=== PATIENT | female | born 1980 | race Caucasian/White ===

== ENCOUNTER 2016-08-31 11:32 | Outpatient (CLI) | payer BC ==
[~2016-08-31] VITALS: Ht 152.4 cm; Wt 78.1 kg
[2016-08-31] MEDS ORDERED: PRENAT PO (11:35)
[2016-08-31 11:36] VITALS: Ht 152.4 cm; Wt 78.1 kg
[2016-08-31 11:49] VITALS: BP 113/55; PULSE 94; RESP 19
--- NOTE | 2016-08-31 12:48 | RADRPT ---
PROCEDURE: US OB biophysical profile. CLINICAL INDICATION: decreased movements, pain TECHNIQUE: Multiple sonographic images of the pelvis were obtained. The images were reviewed on a PACS workstation. COMPARISON: No prior studies are available for comparison. FINDINGS: There is a single viable intrauterine gestation. Cardiac activity is present with 140 beats per min mehdi. There is a vertex presentation. The placenta is anterior. There is no evidence of placental abruption. There is a normal amount of amniotic fluid with an JACINTA = 9.4 cm. Biophysical profile: movement 2/2 tone 2/2. breathing 2/2 JACINTA 2/2 Total 03/21 RPTAT: AA . IMPRESSION: Normal biophysical profile. . .Red Fung MD, MD Date Time Electronically viewed and signed by .Red Fung MD, MD on 08/31/2016 12:48 .S/
--- NOTE | 2016-08-31 12:50 | RADRPT ---
PROCEDURE: US OB. CLINICAL INDICATION: Size and dates TECHNIQUE: Multiple sonographic images of the pelvis and gravid uterus were obtained. The images were reviewed on a PACS workstation. COMPARISON: No prior studies are available for comparison. FINDINGS: There is a single viable intrauterine gestation. Cardiac activity is present with 148 beats per min mehdi. There is a vertex presentation. The placenta is anterior. There is no evidence of placental abruption. There is a normal amount of amniotic fluid with an JACINTA = 9.4 cm. Measurements were made in order to determine age. The results are as follows: BPD =9.3 cm HC =33.8 cm AC =34.2 cm FL =7.1 cm Estimated gestational age of approximately 37 weeks and 6 days based on ultrasound measurements. Clinical age: 37 weeks and 4 days. The estimated date of delivery is 09/15/16, based on ultrasound measurements. The EFW = 3301 g, 64.9%, based on LMP age. RPTAT: AA IMPRESSION: Single viable intrauterine gestation of approximately 37 weeks and 6 days based on ultrasound measu rements. .Red Fung MD, Date Time Electronically viewed and signed by .Rde Fung MD, on 08/31/2016 12:50 .S/
== END 2016-08-31 13:26 | disposition home or self-care (01) ==
LOC: L-D 11:32 → OBT 11:32
PROVIDERS: ATTEND Obstetrics & Gynecology
DX: O9A.213 Injury, poisoning and certain other consequences of external causes complicating pregnancy, third trimester (principal); S39.91XA Unspecified injury of abdomen, initial encounter; Z3A.37 37 weeks gestation of pregnancy; X58.XXXA Exposure to other specified factors, initial encounter; O36.8130 Decreased fetal movements, third trimester, not applicable or unspecified
CPT/HCPCS: 76815; 76818; Z7500; G0463

== ENCOUNTER 2016-09-09 13:34 | Outpatient (CLI) | payer BC ==
--- NOTE | 2016-08-31 18:10 | QN ---
Documentation Comment 36 years old with at 37 weeks and 4/7 was seen today in the office for OBV. Patient told she ran in to a pump and hit her abdomen from the side 4 days ago. Denies any fall, Denies any LOF, vaginal bleeding or contractions. she was sent today to L&D for evaluation. Patient currently denies any pain and has not complaint. GA: A*O, NAD Abdomen: Soft, non tender, no rebound tenderness, gravid Fundal height correlate with GA. Extremities: no calf tenderness, no click, no edema PROCEDURE: US OB. CLINICAL INDICATION: Size and dates TECHNIQUE: Multiple sonographic images of the pelvis and gravid uterus were obtained. The images were reviewed on a PACS workstation. COMPARISON: No prior studies are available for comparison. FINDINGS: There is a single viable intrauterine gestation. Cardiac activity is present with 148 beats per minute. There is a vertex presentation. The placenta is anterior. There is no evidence of placental abruption. There is a normal amount of amniotic fluid with an JACINTA = 9.4 cm. Measurements were made in order to determine age. The results are as follows: BPD = 9.3 cm HC = 33.8 cm AC = 34.2 cm FL = 7.1 cm Estimated gestational age of approximately 37 weeks and 6 days based on ultrasound measurements. Clinical age: 37 weeks and 4 days. The estimated date of delivery is 09/15/16, based on ultrasound measurements. The EFW = 3301 g, 64.9%, based on LMP age. RPTAT: AA IMPRESSION: Single viable intrauterine gestation of approximately 37 weeks and 6 days based on ultrasound measurements. No evidence of abruption. Assessment: IUP at 37 weeks and 4 days S/p minor trauma 3 days ago No evidence of abruption NST category 1 adequate amniotic fluid, No evidence of labor Plan DC home Strict labor precautions and kick counts and follow with her OB in the next 2-3 days recommended Patient verbalized understanding. JESSICA SWAN MD Aug 31, 2016 18:07
[~2016-09-09] VITALS: Ht 152.4 cm; Wt 79.2 kg
[~2016-09-09 13:34] MED LIST: PRENAT PO
[2016-09-09] MEDS ORDERED: FERR325C PO (13:59)
[2016-09-09 14:00] VITALS: Ht 152.4 cm; Wt 79.2 kg
[2016-09-09 14:01] VITALS: BP 116/62; PULSE 89; RESP 18
--- NOTE | 2016-09-09 14:44 | RADRPT ---
PROCEDURE: OB ultrasound for biophysical profile CLINICAL INDICATION: Decreased motion. Biophysical profile. . TECHNIQUE: Multiple sonographic images of the pelvis were obtained. Transabdominal view of the gr avid uterus are available for review. The images were reviewed on a PACS workstation. COMPARISON: 08/31/2016 FINDINGS: breathing movement = 2/2 tone = 2/2 motion = 2/2 JACINTA = 2/2 Single intrauterine gestation is identified in cephalic position. heart rate is 144 bpm. Plac enta is anterior without evidence for abruption or previa. JACINTA measures 14.5 cm, within normal limi ts. IMPRESSION: 1. Single live intrauterine gestation. 2. Biophysical profile = 8/8. 3. JACINTA = 14.5 cm. RPTAT: TT .Jeremi Crain MD, Date Time Electronically viewed and signed by .Jeremi Crain MD, on 09/09/2016 14:44 .R/
--- NOTE | 2016-09-09 14:58 | RADRPT ---
PROCEDURE: US OB. CLINICAL INDICATION: Decreased motion TECHNIQUE: Multiple sonographic images of the pelvis were obtained. Transabdominal imaging only w as performed. The images were reviewed on a PACS workstation. COMPARISON: 08/31/2016 FINDINGS: Single intrauterine gestation. Cephalic presentation. heart rate is 142 bpm. Measurements were made in order to determine age. The results are as follows: BPD = 9.71 cm HC = 34.62 cm AC = 34.92 cm FL = 7.48 cm Gestational age is 39 weeks 2 days and ZACKARY is 09/14/2016 by ultrasound criteria. Gestational age is 38 weeks 6 days and ZACKARY is 09/17/2016 by LMP. EFW = 3644 g +/- 547 g (71 %). The placenta is anterior. There is no evidence for an abruption or placenta previa. IMPRESSION: 1. Single live intrauterine gestation of approximately 39 weeks 2 days by ultrasound criteria. RPTAT: TT .Jeremi Crain MD, MD Date Time Electronically viewed and signed by .Jeremi Crain MD, on 09/09/2016 14:58 .R/
--- NOTE | 2016-09-09 16:23 | PN ---
DATE: 09/09/2016 The patient is a 36-year-old at 38 and 1/2 weeks with occasional movement. Exam within normal limits. Ultrasound within normal limits. elevate. Patient with gestational movement and the patient will be discharged home. Follow up on Monday for NST. Dictated By: SALVADOR CONTRERAS MD /NTS Conf#: [id number] DID#: [id number]
== END 2016-09-09 15:29 | disposition home or self-care (01) ==
LOC: OBT 13:34 → L-D 13:35 → OBT 15:29
PROVIDERS: ATTEND Obstetrics & Gynecology
DX: O9A.213 Injury, poisoning and certain other consequences of external causes complicating pregnancy, third trimester (principal); S39.91XA Unspecified injury of abdomen, initial encounter; O36.8130 Decreased fetal movements, third trimester, not applicable or unspecified; O09.523 Supervision of elderly multigravida, third trimester; Z3A.37 37 weeks gestation of pregnancy; W22.8XXA Striking against or struck by other objects, initial encounter
CPT/HCPCS: 76815; 76818; Z7500; G0463

== ENCOUNTER 2016-09-10 17:04 | Inpatient (IN) | payer BC ==
[~2016-09-10] VITALS: Ht 154.9 cm; Wt 79.3 kg
[~2016-09-10 17:04] MED LIST changes: +FERR325C PO
[2016-09-10 17:41] VITALS: Ht 154.9 cm; Wt 79.3 kg
[2016-09-10 17:52] VITALS: BP 117/57; PULSE 105; RESP 19
[2016-09-10] MEDS: LACTATED RINGER'S 1,000 ML IV SCH (17:55)
[2016-09-10] MEDS ORDERED: OXYTOCIN 30 UNITS/LR 500 ML IV SCH ×2 (18:00)
[2016-09-10] MEDS ORDERED: CARBOPROST 250 MCG INJ IM PRN (18:00)
[2016-09-10] MEDS ORDERED: MISOPROSTOL 200 MCG TAB PR PRN (18:00)
[2016-09-10] MEDS ORDERED: ACETAMINOPHEN/CODEINE #3 TAB PO PRN (18:00)
[2016-09-10] MEDS ORDERED: LIDOCAINE 1% (MPF) 30 ML INJ INJ PRN (18:00)
[2016-09-10] MEDS ORDERED: OXYTOCIN 30 UNITS/LR 500 ML IV PRN (18:00)
[2016-09-10] MEDS ORDERED: BUTORPHANOL 2 MG INJ IV PRN ×2 (18:00)
[2016-09-10] MEDS ORDERED: IBUPROFEN 600 MG TAB PO PRN (18:00)
[2016-09-10] MEDS ORDERED: METHYLERGONOVINE 0.2 MG INJ IM PRN (18:00)
[2016-09-10 18:10] LABS: BASOPHILS % 0.2 % (0.0-2.0); EOSINOPHILS # 0.1 10^3/ul (0.0-0.5); HEMATOCRIT 33.6 % (37.0-47.0); HEMOGLOBIN 11.6 g/dl (12.0-16.0); LYMPHOCYTES # 1.4 10^3/ul (0.8-2.9); LYMPHOCYTES % 13.4 % (15.0-51.0); MEAN CORPUSCULAR HEMOGLOBIN 28.7 pg (29.0-33.0); MEAN CORPUSCULAR HGB CONC 34.5 g/dl (32.0-37.0); MEAN CORPUSCULAR VOLUME 83.2 fl (82.0-101.0); MEAN PLATELET VOLUME 8.3 fl (7.4-10.4); MONOCYTE # 0.7 10^3/ul (0.3-0.9); MONOCYTES % 6.7 % (0.0-11.0); NEUTROPHIL # 8.5 10^3/ul (1.6-7.5); NEUTROPHILS % 78.7 % (39.0-77.0); PLATELET COUNT 277 10^3/UL (140-440); RED BLOOD COUNT 4.04 10^6/ul (4.20-5.40); UNCORRECTED WBC 10.8 10^3/ul (4.8-10.8); WHITE BLOOD COUNT 10.8 10^3/ul (4.8-10.8)
[2016-09-10 18:16] LABS: CONDITION 1
[2016-09-10 18:17] LABS: LH ANALYZER COMMENTS 1
[2016-09-10 18:19] LABS: INR 0.92; PROTIME 12.4 Sec (12.2-14.2)
[2016-09-10 18:20] LABS: PARTIAL THROMBOPLASTIN TIME 25.2 Sec (25.0-35.0)
--- NOTE | 2016-09-10 18:27 | TRIAGE ---
OB Triage Datetime Report Generated by CPN: 09/10/2016 18:26 Datetime: 09/10/2016 17:45 Stage of : Labor Assessment Type: Admission Assessment Vaginal Bleeding: None Maternal Assessment Level of Consciousness: Fully Conscious DTR's/Clonus: DTRs 2+; No Clonus Headache: Denies Blurred Vision: No Respiratory Effort: Unlabored; Regular Rhythm; Equal Expansion Breath Sounds, Left: Clear and Equal Breath Sounds, Right: Clear and Equal Nausea/Vomiting: Denies RUQ Epigastric Pain: Denies Lower Extremities Edema: None Upper Extremities Edema: None Facial Edema: None Fall Risk Assessment History of Falling: (0) No Secondary Diagnosis: (0) No Ambulatory Aid: (0) Bedrest/Nurse Assist IV Therapy: (20) Yes Gait: (0) Normal/Bedrest/Immobile Mental Status: (0) Oriented to Own Ability Fall Score: 20 Fall Risk Score Definition: No Risk: No action required Labor Evaluation Frequency: 5-7 Duration (sec)2399: 90-110 Quality: Strong Pattern: Normal: <= 5 Contractions in 10 Minutes Resting Tone [place]: Relaxed Heart Rate FHR Baseline Rate: 145 Variability: Moderate 6-25 bpm Accelerations: 15X15 Decelerations: None Category: Category I Pain Assessment Pain Scale: 8 Pain Presence: Intermittent Pain Type: Contraction Pain Location: Abdomen Pain Goal: 3 Membrane Status: Bulging Datetime: 09/10/2016 17:38 Stage of : OB Triage Datetime: 09/10/2016 17:36 Stage of : OB Triage Datetime: 09/10/2016 17:30 Stage of : OB Triage Assessment Type: Triage Labor Evaluation Frequency: 7 Monitor Mode: External Duration (sec)2399: 80-90 Quality: Strong Pattern: Normal: <= 5 Contractions in 10 Minutes Heart Rate FHR Baseline Rate: 145 Monitor Mode: External US Variability: Moderate 6-25 bpm Accelerations: 15X15 Decelerations: None Category: Category I Pain Assessment Pain Scale: 8 Pain Presence: Intermittent Pain Type: Contraction Pain Location: Abdomen Pain Goal: 3 Datetime: 09/10/2016 17:25 Labor Evaluation Frequency: 7 Monitor Mode: External Duration (sec)2399: 90-110 Quality: Strong Pattern: Normal: <= 5 Contractions in 10 Minutes Resting Tone [place]: Relaxed Heart Rate FHR Baseline Rate: 145 Monitor Mode: External US Variability: Moderate 6-25 bpm Accelerations: 15X15 Decelerations: None Category: Category I Pain Assessment Pain Scale: 8 Pain Presence: Intermittent Pain Type: Contraction Pain Location: Abdomen Datetime: 09/10/2016 17:19 Vaginal Exam Dilatation (cms): 3.0 Effacement (%): 100 Station: -3 Exam By: KATIA T. Membrane Status: Bulging Presentation 'A': Cephalic Datetime: 09/10/2016 17:15 Assessment Type: Triage Maternal Assessment Level of Consciousness: Fully Conscious DTR's/Clonus: DTRs 2+; No Clonus Headache: Denies Blurred Vision: No Respiratory Effort: Unlabored; Regular Rhythm; Equal Expansion Breath Sounds, Left: Clear and Equal Breath Sounds, Right: Clear and Equal Nausea/Vomiting: Denies RUQ Epigastric Pain: Denies Lower Extremities Edema: None Upper Extremities Edema: None Facial Edema: None Fall Risk Assessment History of Falling: (0) No Secondary Diagnosis: (0) No Ambulatory Aid: (0) Bedrest/Nurse Assist IV Therapy: (0) No Gait: (0) Normal/Bedrest/Immobile Mental Status: (0) Oriented to Own Ability Fall Score: 0 Fall Risk Score Definition: No Risk: No action required Datetime: 09/10/2016 17:10 Time of Arrival: 09/10/2016 17:40 EGA: 39.0 Arrived By: Ambulatory Arrived From: Home Chief Complaint: UC SINCE 529 Movement: Present Contractions: Regular Time Contractions Began: 09/10/2016 05:30 Contractions: 7 Rupture of Membranes: Denies Vaginal Bleeding: None Vaginal Discharge: Denies Recent Sexual Intercouse: Denies Abdominal Trauma: Not Applicable Patient Complaints: Contractions Time Provider Notified: 09/10/2016 17:38 Provider Notified: DELSHAD Initial Plan: HEART MONITORING, UTERINE MONITORING, VS MONITORING, SVE Datetime: 09/09/2016 15:21 Movement: Present Datetime: 09/09/2016 14:59 Vaginal Exam Dilatation (cms): 1.0 Effacement (%): 50 Station: -3 Exam By: Sandra BLAKE Datetime: 09/09/2016 14:23 Time of Arrival: 09/09/2016 13:30 EGA: 38.6 Arrived By: Ambulatory Arrived From: Office Chief Complaint: DFM Movement: Decreased Contractions: Denies/Absent Rupture of Membranes: Denies Vaginal Bleeding: None Vaginal Discharge: Denies Recent Sexual Intercouse: Denies Abdominal Trauma: Not Applicable Patient Complaints: Other Time Provider Notified: 09/09/2016 15:04 Provider Notified: DR MULTANI Initial Plan: NST, EFW AND BPP Datetime: 09/09/2016 14:17 Labor Evaluation Frequency: OCCAS Monitor Mode: External Duration (sec)2399: 150-180 Quality: Mild Pattern: Normal: <= 5 Contractions in 10 Minutes Resting Tone [place]: Relaxed Heart Rate FHR Baseline Rate: 140 Monitor Mode: External US Variability: Moderate 6-25 bpm Accelerations: 15X15 Decelerations: None Category: Category I Datetime: 09/09/2016 14:00 Assessment Type: Admission Assessment Maternal Assessment Level of Consciousness: Fully Conscious DTR's/Clonus: DTRs 2+; No Clonus Headache: Denies Blurred Vision: No Respiratory Effort: Unlabored; Regular Rhythm; Equal Expansion Breath Sounds, Left: Clear and Equal Breath Sounds, Right: Clear and Equal Nausea/Vomiting: Denies RUQ Epigastric Pain: Denies Lower Extremities Edema: None Degree: None Upper Extremities Edema: None Degree: None Facial Edema: None Fall Risk Assessment History of Falling: (0) No Secondary Diagnosis: (0) No Ambulatory Aid: (0) Bedrest/Nurse Assist IV Therapy: (0) No Gait: (0) Normal/Bedrest/Immobile Mental Status: (0) Oriented to Own Ability Fall Score: 0 Fall Risk Score Definition: No Risk: No action required Datetime: 08/31/2016 13:20 Maternal Assessment Level of Consciousness: Fully Conscious DTR's/Clonus: DTRs 1+ Headache: Denies Breath Sounds, Left: Clear and Equal Nausea/Vomiting: Denies RUQ Epigastric Pain: Denies Monitor Mode: External Resting Tone [place]: Relaxed Heart Rate FHR Baseline Rate: 130 Monitor Mode: External US Variability: Moderate 6-25 bpm Accelerations: 15X15 Decelerations: None Category: Category I Pain Assessment Pain Scale: 0 Pain Presence: None/Denies Pain Type: N/A Pain Goal: 3 Membrane Status: Intact Datetime: 08/31/2016 12:30 Stage of : OB Triage Maternal Assessment Level of Consciousness: Fully Conscious DTR's/Clonus: DTRs 1+ Headache: Denies Breath Sounds, Left: Clear and Equal Nausea/Vomiting: Denies RUQ Epigastric Pain: Denies Labor Evaluation Frequency: NONE Monitor Mode: External Resting Tone [place]: Relaxed Heart Rate FHR Baseline Rate: 130 Monitor Mode: External US Variability: Moderate 6-25 bpm Accelerations: 15X15 Decelerations: None Category: Category I Pain Assessment Pain Scale: 0 Pain Presence: None/Denies Pain Type: N/A Pain Goal: 3 Membrane Status: Intact Datetime: 08/31/2016 11:50 Maternal Assessment Level of Consciousness: Fully Conscious DTR's/Clonus: DTRs 1+ Headache: Denies Blurred Vision: No Breath Sounds, Left: Clear and Equal Nausea/Vomiting: Denies RUQ Epigastric Pain: Denies Facial Edema: None Labor Evaluation Frequency: IRREGULAR Monitor Mode: External Duration (sec)2399: 40-50 Quality: Mild Pattern: Normal: <= 5 Contractions in 10 Minutes Resting Tone [place]: Relaxed Heart Rate FHR Baseline Rate: 130 Monitor Mode: External US Variability: Moderate 6-25 bpm Accelerations: 15X15 Decelerations: None Category: Category I Pain Assessment Pain Scale: 0 Pain Presence: None/Denies Pain Type: N/A Pain Goal: 3 Membrane Status: Intact Datetime: 08/31/2016 11:47 EGA: 37.4 Datetime: 08/31/2016 11:40 Assessment Type: Triage Maternal Assessment Level of Consciousness: Fully Conscious DTR's/Clonus: DTRs 2+; No Clonus Headache: Denies Blurred Vision: No Respiratory Effort: Unlabored; Regular Rhythm; Equal Expansion Breath Sounds, Left: Clear and Equal Breath Sounds, Right: Clear and Equal Nausea/Vomiting: Denies RUQ Epigastric Pain: Denies Lower Extremities Edema: None Degree: None Upper Extremities Edema: None Degree: None Facial Edema: None Fall Risk Assessment History of Falling: (0) No Secondary Diagnosis: (0) No Ambulatory Aid: (0) Bedrest/Nurse Assist IV Therapy: (0) No Gait: (0) Normal/Bedrest/Immobile Mental Status: (0) Oriented to Own Ability Fall Score: 0 Fall Risk Score Definition: No Risk: No action required Datetime: 08/31/2016 11:28 Time of Arrival: 08/31/2016 11:28 Arrived By: Ambulatory Arrived From: Dr. Walden Chief Complaint: PT CAME IN FROM [facility] FOR EVALUATION OF ABDOMINAL TRAUMA ON 08/27/16. PT DE NIES ANY BLEDING AND STATES THAT BABY HAS BEEN MOVING WELL. PT ALSO STATES HAVING A SAMLL BRUISE ON HER ABODMEN THAT MEASURES ABOUT A JUNI SIZE. PT PLACED ON EFM X 2 Movement: Present Contractions: Denies/Absent Rupture of Membranes: Denies Vaginal Discharge: Denies Recent Sexual Intercouse: Denies Abdominal Trauma: Fall Patient Complaints: Other Additional Patient Complaints: NONE Time Provider Notified: 08/31/2016 12:20 Provider Notified: KONSTANTIN Initial Plan: NST, BPP, EFW AND PLACENTA LOCATION
[2016-09-10] MEDS ORDERED: FENTAnyl 2MCG/ML-ROPIV 0.2% 100 ML ONE (19:38)
[2016-09-10] MEDS ORDERED: LACTATED RINGER'S 1,000 ML IV PRN (21:00)
[2016-09-10] MEDS ORDERED: DIPHENHYDRAMINE 50 MG INJ IV PRN (22:00)
[2016-09-10] MEDS ORDERED: NALOXONE (0.4 MG/ML) INJ IV PRN (22:00)
[2016-09-10] MEDS ORDERED: HYDROmorphONE 1 MG/ML SYG IV PRN ×2 (22:00)
[2016-09-10] MEDS ORDERED: ONDANSETRON 4 MG INJ IV PRN (22:00)
[2016-09-10] MEDS ORDERED: morphine 2 MG INJ IV PRN ×2 (22:00)
[2016-09-11] MEDS: LACTATED RINGER'S 1,000 ML IV SCH ×4 (02:15→16:38)
[2016-09-11] MEDS: FENTAnyl 2MCG/ML-ROPIV 0.2% 100 ML BAG EPI SCH ×2 (04:21→12:36)
--- NOTE | 2016-09-11 06:15 | HP ---
Date/Time of Note Date/Time of Note DATE: 09/11/16 TIME: 06:13 OB - History Hx of Present Chief Complaint: contractions Last Menstrual Period: Dec 12, 2015 Estimated Due Date: Sep 17, 2016 : 4 Para: 1 Spontaneous : 2 Therapeutic : 0 Care: Good Care Ultrasounds: Normal mid trimester US Obstetrical Complications: None Medical Complications: None Past Family/Social History * Past Medical, Surgical, Family and Obstetric Histories reviewed from chart. GBS Status: Negative OB Admission Exam Vital Signs Vital Signs Vital Signs Date Time Temp Pulse Resp B/P Pulse Ox O2 Delivery O2 Flow Rate FiO2 09/10/16 17:52 98.0 105 19 117/57 Room Air Physical Exam HEENT: WNL Heart: Rhythm Normal Lungs: Clear Abdomen: WNL Extremities: Normal Cervical Dilatation: 8cm Station: -1 Membranes: Ruptured Amniotic Fluid: Clear Heart Rate: 140's Accelerations: Accelerations Present Varibility: Moderate Last 72 hours Lab Results CBC & BMP 09/10/16 18:00 OB Assessment/Plan Reason for admission: active labor Plan: Expectant Management RUT MULTANI MD Sep 11, 2016 06:15
[2016-09-11] MEDS ORDERED: LIDOCAINE 2%/EPI 30 ML INJ ONE (07:52)
[2016-09-11] MEDS ORDERED: LACTATED RINGER'S 1,000 ML IV SCH (12:51)
[2016-09-11] MEDS ORDERED: CEFAZOLIN 2 GM/50 ML (PMX) 50 ML IVPB ONE (12:53)
[2016-09-11] MEDS ORDERED: METOCLOPRAMIDE 10 MG INJ ONE (12:59)
[2016-09-11] MEDS ORDERED: LIDOCAINE 2% (SDV) 5 ML INJ ONE (12:59)
[2016-09-11] MEDS ORDERED: METHYLERGONOVINE 0.2 MG INJ IM PRN ×2 (13:00→17:00)
[2016-09-11] MEDS ORDERED: OXYTOCIN 30 UNITS/LR 500 ML IV PRN ×2 (13:00→17:00)
[2016-09-11] MEDS ORDERED: CARBOPROST 250 MCG INJ IM PRN ×2 (13:00→17:00)
[2016-09-11] MEDS ORDERED: OXYTOCIN 30 UNITS/LR 500 ML IV SCH (13:00)
[2016-09-11] MEDS ORDERED: MISOPROSTOL 200 MCG TAB PR PRN ×2 (13:00→17:00)
[2016-09-11] MEDS ORDERED: CEFAZOLIN 2 GM/50 ML (PMX) 50 ML IV SCH (13:00)
[2016-09-11] MEDS ORDERED: morphine SULFATE/PF (10 MG/10 ML) INJ ONE (13:00)
--- NOTE | 2016-09-11 13:12 | QN ---
Documentation Comment Patient progressed to full dilation but there has been no descent of head for more than five hours. Patient is for delivery by primary due to arrest of descent. Risks, benefits and alternatives were explained to the patient. Patient stated she understood and gave informed consent for the procedure. RUT MULTANI MD Sep 11, 2016 13:12
[2016-09-11] MEDS ORDERED: PHENYLephrine (100 MCG/ML) 5ML SYG ONE (13:45)
[2016-09-11] MEDS ORDERED: DIPHENHYDRAMINE 50 MG INJ IV PRN (14:00)
[2016-09-11] MEDS ORDERED: NALOXONE (0.4 MG/ML) INJ IV PRN (14:00)
[2016-09-11] MEDS ORDERED: ONDANSETRON 4 MG INJ IV PRN (14:00)
[2016-09-11] MEDS ORDERED: MEPERIDINE 25 MG INJ IV PRN (14:00)
[2016-09-11] MEDS ORDERED: METOCLOPRAMIDE 10 MG INJ IV PRN (14:00)
[2016-09-11] MEDS ORDERED: HYDROmorphONE (0.2 MG/ML) 10ML SYG IV PRN ×3 (14:00)
[2016-09-11] MEDS: KETOROLAC 30 MG INJ IV PRN ×2 (15:03→20:51)
[2016-09-11 16:10] VITALS: BP 114/72; PULSE 87; RESP 17
[2016-09-11] MEDS ORDERED: LANOLIN 7 GM TUBE TOP PRN (17:00)
[2016-09-11] MEDS: OXYTOCIN 30 UNITS/LR 500 ML IV SCH ×2 (18:48→23:49)
--- NOTE | 2016-09-11 19:20 | OPR ---
DATE OF OPERATION: 09/11/2016 PREOPERATIVE DIAGNOSES: at term with arrest of descent. POSTOPERATIVE DIAGNOSES: at term with arrest of descent. OPERATION PERFORMED: Primary low transverse section. SURGEON: Rut Leger MD SALES ADMINISTRATION MANAGER: Mario Belcher MD ANESTHESIA: Epidural. ANESTHESIOLOGIST: Amanda Mc MD PROCEDURE: The patient was taken to the operating room and placed on the operating table. After adequate epidural anesthesia was given, the patient was placed in supine position. The area was prepared and draped in the usual sterile fashion. Epidural anesthesia was tested and was satisfactory. Using a scalpel, Pfannenstiel incision was made about 2 fingerbreadths above the symphysis pubis. The incision was carried to the fascia. The fascia was incised and extended bilaterally with Ayala scissors. Two Sherrie's were used to separate the fascia from the muscle. The muscle was dissected in midline down to peritoneum. The peritoneum was secured with Kellys and incised with Metzenbaum scissors. The serosa of the lower segment of the uterus was identified, incised and extended bilaterally to develop a bladder flap. Using scalpel, a small transverse incision was made in the lower segment of the uterus. Upon entering the uterine cavity, bandage scissors were inserted to extend the incision bilaterally, curved up. The placenta was delivered from cephalic presentation. After suctioning clear of amniotic fluid, the baby was handed off to the projection technician in attendance. Apgars were 8 and 9. Placenta was delivered without difficulty. The uterus was closed with #1 Monocryl continuous locked. After assuring hemostasis, both ovaries and tubes were inspected, all looked normal. The peritoneal cavity was irrigated with warm saline. The peritoneum was closed with 2-0 Vicryl continuous. The fascia was closed with #1 Vicryl continuous in 2 segments. The skin was closed with yoselin. ESTIMATED BLOOD LOSS: 600 mL. COMPLICATIONS: None. COUNTS: Lap, instrument, and needle counts were correct x2. Dictated By: RUT LEGER MD GD/NTS Conf#: [id number] DID#: [id number]
[2016-09-11 20:00] VITALS: BP 113/55; PULSE 98; RESP 18
[2016-09-11] MEDS: SENNA/DOCUSATE NA (8.6MG/50MG) TAB PO SCH (20:46)
[2016-09-12 00:40] VITALS: BP 97/53; PULSE 103; RESP 20
[2016-09-12] MEDS ORDERED: NALOXONE (0.4 MG/ML) INJ IV PRN ×2 (01:00)
[2016-09-12] MEDS ORDERED: DIPHENHYDRAMINE 50 MG INJ IV PRN (01:00)
[2016-09-12] MEDS ORDERED: ACETAMINOPHEN/CODEINE #3 TAB PO PRN (01:00)
[2016-09-12] MEDS ORDERED: ONDANSETRON 4 MG INJ IV PRN (01:00)
[2016-09-12] MEDS ORDERED: HYDROmorphONE 1 MG/ML SYG IV PRN ×2 (01:00)
[2016-09-12] MEDS ORDERED: morphine 2 MG INJ IV PRN ×2 (01:00)
[2016-09-12] MEDS ORDERED: IBUPROFEN 600 MG TAB PO PRN (01:00)
[2016-09-12] MEDS: LACTATED RINGER'S 1,000 ML IV SCH ×3 (04:32→16:38)
[2016-09-12 04:35] VITALS: BP 96/48; PULSE 105; RESP 18
[2016-09-12] MEDS: KETOROLAC 30 MG INJ IV PRN ×2 (06:05→12:51)
[2016-09-12 07:54] LABS: BASOPHILS % 0.1 % (0.0-2.0); EOSINOPHILS # 0.1 10^3/ul (0.0-0.5); EOSINOPHILS % 0.5 % (0.0-7.0); HEMATOCRIT 23.6 % (37.0-47.0); HEMOGLOBIN 8.2 g/dl (12.0-16.0); LYMPHOCYTES # 1.3 10^3/ul (0.8-2.9); LYMPHOCYTES % 9.1 % (15.0-51.0); MEAN CORPUSCULAR HEMOGLOBIN 29.1 pg (29.0-33.0); MEAN CORPUSCULAR HGB CONC 34.5 g/dl (32.0-37.0); MEAN CORPUSCULAR VOLUME 84.2 fl (82.0-101.0); MEAN PLATELET VOLUME 9.1 fl (7.4-10.4); MONOCYTE # 0.8 10^3/ul (0.3-0.9); MONOCYTES % 5.4 % (0.0-11.0); NEUTROPHIL # 12.2 10^3/ul (1.6-7.5); NEUTROPHILS % 84.9 % (39.0-77.0); PLATELET COUNT 216 10^3/UL (140-440); RED BLOOD COUNT 2.81 10^6/ul (4.20-5.40); RED CELL DISTRIBUTION WIDTH 15.6 % (11.5-14.5); UNCORRECTED WBC 14.3 10^3/ul (4.8-10.8); WHITE BLOOD COUNT 14.3 10^3/ul (4.8-10.8)
[2016-09-12 08:15] VITALS: BP 94/49; PULSE 98; RESP 17
[2016-09-12 08:22] LABS: CONDITION 1; LH ANALYZER COMMENTS 1
[2016-09-12] MEDS: SENNA/DOCUSATE NA (8.6MG/50MG) TAB PO SCH ×2 (09:07→21:44)
[2016-09-12 12:30] VITALS: BP 101/54; PULSE 102; RESP 17
[2016-09-12] MEDS: IBUPROFEN 800 MG TAB PO SCH ×2 (14:00→21:44)
[2016-09-12] MEDS: OXYCODONE/ACETAMINOPHEN (5/325) TAB PO PRN (16:30)
[2016-09-12 16:32] VITALS: BP 109/60; PULSE 103; RESP 19
[2016-09-12 19:45] VITALS: BP 106/66; PULSE 111; RESP 20
--- NOTE | 2016-09-12 20:47 | QN ---
Documentation Comment No complaint. Afebrile VSS Abdomen soft POD #1 Stable Ambulate Advance diet. RUT MULTANI MD Sep 12, 2016 20:47
[2016-09-13] MEDS: OXYCODONE/ACETAMINOPHEN (5/325) TAB PO PRN ×3 (03:49→20:04)
[2016-09-13 03:50] VITALS: BP 101/59; PULSE 98; RESP 18
[2016-09-13] MEDS: IBUPROFEN 800 MG TAB PO SCH ×3 (05:52→22:00)
[2016-09-13 08:00] VITALS: BP_SYST 57; PULSE 84; RESP 18
[2016-09-13] MEDS: SENNA/DOCUSATE NA (8.6MG/50MG) TAB PO SCH ×3 (09:39→21:00)
[2016-09-13 16:00] VITALS: BP 98/56; PULSE 83; RESP 16
[2016-09-13 19:40] VITALS: BP 106/66; PULSE 86; RESP 18
--- NOTE | 2016-09-13 21:26 | PN ---
Date/Time of Note Date/Time of Note DATE: 09/13/16 TIME: 21:23 OB Subjective Subjective Subjective No complaint OB Objective Objective Objective Afebrile VSS Abdomen soft Wound clean and dry Abdomen: WNL OB Assessment/Plan Reason for admission: other Other Assessment: POD #2 Stable Induction Method: other Other plan: Continue present care. RUT MULTANI MD Sep 13, 2016 21:26
[2016-09-13] MEDS ORDERED: MAGNESIUM HYDROXIDE 30ML CUP PO ONE (21:30)
[2016-09-14 04:25] VITALS: BP 101/65; PULSE 76; RESP 17
[2016-09-14] MEDS: IBUPROFEN 800 MG TAB PO SCH ×3 (05:40→22:30)
[2016-09-14] MEDS ORDERED: DIPHTH/TET/ACEL PERTUSS (ADULT) 0.5 ML VIAL IM* ONE (09:00)
[2016-09-14] MEDS: SENNA/DOCUSATE NA (8.6MG/50MG) TAB PO SCH (09:09)
[2016-09-14 09:10] VITALS: BP 99/56; PULSE 66; RESP 20
[2016-09-14] MEDS: OXYCODONE/ACETAMINOPHEN (5/325) TAB PO PRN ×2 (09:10→17:08)
[2016-09-14 16:00] VITALS: BP 106/58; PULSE 74; RESP 18
[2016-09-14 20:50] VITALS: BP 119/71; PULSE 74; RESP 20
[2016-09-15 03:30] VITALS: BP 124/76; PULSE 80; RESP 20
[2016-09-15] MEDS: IBUPROFEN 800 MG TAB PO SCH (05:46)
--- NOTE | 2016-09-15 06:03 | DS ---
DATE OF ADMISSION: 09/10/2016 DATE OF DISCHARGE: 09/15/2016 ADMITTING DIAGNOSIS: at term with spontaneous rupture of membranes. HISTORY: A 36-year-old female 4, para 1-0-2-1 at the time of admission, para 2-0-2-2 at kanu e of discharge with term , presented with spontaneous rupture of membranes. On 09/11/2016, after obtaining informed consent, the patient underwent a primary low transverse section d ue to arrest of descent. The patient's operation was uncomplicated. Postoperatively, the patient w as given clear liquid diet which was advanced to regular diet which she tolerated well. The patient discharged on postop day #4 after having had adequate bladder and bowel function. CONDITION ON DISCHARGE: Stable. DISCHARGE INSTRUCTIONS DIET: Regular. ACTIVITIES: Pelvic rest and no strenuous activities. MEDICATIONS: 1. Motrin as needed for pain. 2. Continue with vitamins and ferrous sulfate. Follow up in clinic in 1 week. FINAL DIAGNOSES 1. Term delivered by section. 2. Arrest of descent. 3. Mother with single liveborn. Dictated By: RUT PETIT/KITA Conf#: [id number] DID#: [id number]
[2016-09-15] MEDS: OXYCODONE/ACETAMINOPHEN (5/325) TAB PO PRN (06:44)
[2016-09-15 08:00] VITALS: BP 115/58; PULSE 72; RESP 18
[2016-09-15] MEDS: SENNA/DOCUSATE NA (8.6MG/50MG) TAB PO SCH (09:36)
[2016-09-15] MEDS ORDERED: BISACODYL 10 MG SUPP PR ONE (10:00)
== END 2016-09-15 15:49 | disposition home or self-care (01) | DRG 766 ==
LOC: L-D 17:04 → OBT 17:04 → L-D 17:38 → OBT 17:38 → L-D 09-11 13:00 → PP1 09-11 16:08
PROVIDERS: ADMIT Obstetrics & Gynecology; ATTEND Obstetrics & Gynecology
PROC: 10D00Z1 Extraction of Products of Conception, Low, Open Approach (ICD-10-PCS; principal; 2016-09-11 13:15)
DX: O62.1 Secondary uterine inertia (principal); Z37.0 Single live birth; Z3A.39 39 weeks gestation of pregnancy
CPT/HCPCS: 62319; 85025; 85610; 85730; 86592; 86885; 86900; 86901; 90715; 94760; 99464; G0463; J0690; J1885; J2210; J2274; J2370; J2590; J2765; J3010; J7120